=== PATIENT | male | born 1985 | race African-American/Black ===

== ENCOUNTER 2017-03-13 09:15 | Emergency (ER) | payer SELFPAY ==
[2017-03-13] MEDS ORDERED: ONDANSETRON HCL INJ/PF 4 MG/2 ML SDV IV ONE (09:40)
[2017-03-13] MEDS ORDERED: KETOROLAC TROMETHAMINE INJ/PF 30 MG/1 ML SDV IV ONE (09:40)
[2017-03-13] MEDS ORDERED: MORPHINE SULFATE 10 MG/ML INJ IV ONE (09:40)
--- NOTE | 2017-03-13 09:45 | ER Document Report ---
HPI - HPI Patient complains to provider of: left flank pain Onset: Other - 2 days Onset/Duration: Waxing and waning Quality of pain: Sharp Pain Level: 3 Context: Patient presents complaining of left flank pain off and on for the past 2 days. Patient states pain wraps around to the left side of his abdomen. Patient denies any urinary symptoms. Patient does report nausea and vomiting 1 episode today. Last bowel movement was normal that occurred yesterday. Patient without any fever. Patient states that the pain will vary in intensity and sometimes make him nauseous and break out into a sweat. Patient does report a previous history of kidney stones in the past but never followed up with a urologist for further evaluation of his kidney stones. Associated Symptoms: Vomiting, Other - left flank pain. denies: Fever Exacerbated by: Denies Relieved by: Denies Similar symptoms previously: Yes Recently seen / treated by doctor: No - ROS ROS below otherwise negative: Yes Systems Reviewed and Negative: Yes All other systems reviewed and negative - CONSTITUTIONAL Constitutional: DENIES: Fever, Chills - NEURO Neurology: DENIES: Weakness - RESPIRATORY Respiratory: DENIES: Trouble Breathing - GASTROINTESTINAL Gastrointestinal: REPORTS: Abdominal Pain, Nausea, Patient vomiting. DENIES: Diarrhea - URINARY Urinary: DENIES: Dysuria, Urgency, Frequency - MUSCULOSKELETAL Musculoskeletal: REPORTS: Back Pain. DENIES: Extremity pain - DERM Skin Color: Normal Skin Problems: None Past Medical History - General Information source: Patient - Social History Smoking Status: Current Every Day Smoker Frequency of alcohol use: None Drug Abuse: None Occupation: delivery Lives with: Family Family History: Reviewed & Not Pertinent - Medical History Medical History: Negative Renal/ Medical History: Denies: Hx Peritoneal Dialysis Surgical Hx: Negative Vertical Provider Document - CONSTITUTIONAL Agree With Documented VS: Yes Exam Limitations: No Limitations General Appearance: WD/WN, No Apparent Distress - INFECTION CONTROL TRAVEL OUTSIDE OF THE [place] IN LAST 30 DAYS: No - HEENT HEENT: Atraumatic, Normocephalic - NECK Neck: Normal Inspection - RESPIRATORY Respiratory: Breath Sounds Normal, No Respiratory Distress O2 Sat by Pulse Oximetry: 99 - CARDIOVASCULAR Cardiovascular: Regular Rate, Regular Rhythm, No Murmur - GI/ABDOMEN Gastrointestinal: Abdomen Soft, Abdomen Tender - left side abd - BACK Back: CVA Tenderness-Left - MUSCULOSKELETAL/EXTREMETIES Musculoskeletal/Extremeties: ANOOP DICK - NEURO Level of Consciousness: Awake, Alert, Appropriate Motor/Sensory: No Motor Deficit - DERM Integumentary: Warm, Dry, No Rash Course - Re-evaluation Re-evalutation: 03/13/17 11:02 labs now sent by RN 03/13/17 13:[address] Middleton regarding patient presentation, recommends treating patient with Ceftin ear and having him have his creatinine rechecked in about 3 days. Recommend follow-up with urology for further evaluation. 03/13/17 13:54 With [facility] and made an appointment for the patient on March 23 at 845. Discussed plan of care with patient, patient advised that he will need to return in 3 days for repeat blood test and reevaluation with plan to follow- up with urology on 23 March. Patient and family verbalized understanding and agree with plan of care. Discussed worsening signs or symptoms that patient will need to return immediately for. - Vital Signs Vital signs: Temp Pulse Resp BP Pulse Ox 97.9 F 66 14 124/78 99 03/13/17 09:19 03/13/17 09:19 03/13/17 09:19 03/13/17 09:19 03/13/17 09:19 - Laboratory Result Diagrams: 03/13/17 10:50 03/13/17 10:50 Laboratory results interpreted by me: 03/13/17 13:55 Labs- Last Values WBC 5.5 10^3/uL (4.0-10.5) 03/13/17 10:50 RBC 5.14 10^6/uL (4.35-5.55) 03/13/17 10:50 Hgb 14.8 g/dL (13.5-17.0) 03/13/17 10:50 Hct 44.2 % (37.9-51.0) 03/13/17 10:50 MCV 86 fl (80-97) 03/13/17 10:50 MCH 28.9 pg (27.0-33.4) 03/13/17 10:50 MCHC 33.6 g/dL (32.0-36.0) 03/13/17 10:50 RDW 13.2 % (11.5-14.0) 03/13/17 10:50 Plt Count 231 10^3/uL (150-450) 03/13/17 10:50 Seg Neutrophils % 63.9 % (42-78) 03/13/17 10:50 Lymphocytes % 24.5 % (13-45) 03/13/17 10:50 Monocytes % 9.4 % (3-13) 03/13/17 10:50 Eosinophils % 2.0 % (0-6) 03/13/17 10:50 Basophils % 0.2 % (0-2) 03/13/17 10:50 Absolute Neutrophils 3.5 10^3/uL (1.7-8.2) 03/13/17 10:50 Absolute Lymphocytes 1.3 10^3/uL (0.5-4.7) 03/13/17 10:50 Absolute Monocytes 0.5 10^3/uL (0.1-1.4) 03/13/17 10:50 Absolute Eosinophils 0.1 10^3/uL (0.0-0.6) 03/13/17 10:50 Absolute Basophils 0.0 10^3/uL (0.0-0.2) 03/13/17 10:50 Sodium 142.2 mmol/L (137-145) 03/13/17 10:50 Potassium 4.3 mmol/L (3.6-5.0) 03/13/17 10:50 Chloride 105 mmol/L (98-107) 03/13/17 10:50 Carbon Dioxide 26 mmol/L (22-30) 03/13/17 10:50 Anion Gap 11 (5-19) 03/13/17 10:50 BUN 17 mg/dL (7-20) 03/13/17 10:50 Creatinine 1.53 mg/dL (0.52-1.25) H 03/13/17 10:50 Est GFR ( Amer) > 60 (>60) 03/13/17 10:50 Est GFR (Non-Af Amer) 53 (>60) L 03/13/17 10:50 Glucose 90 mg/dL (75-110) 03/13/17 10:50 Calcium 10.1 mg/dL (8.4-10.2) 03/13/17 10:50 Total Bilirubin 0.5 mg/dL (0.2-1.3) 03/13/17 10:50 Direct Bilirubin 0.3 mg/dL (0.0-0.4) 03/13/17 10:50 Indirect Bilirubin Not Reportable 03/13/17 10:50 Neonat Total Bilirubin Not Reportable 03/13/17 10:50 AST 34 U/L (17-59) 03/13/17 10:50 ALT 34 U/L (21-72) 03/13/17 10:50 Alkaline Phosphatase 63 U/L (38-126) 03/13/17 10:50 Total Protein 7.8 g/dL (6.3-8.2) 03/13/17 10:50 Albumin 4.6 g/dL (3.5-5.0) 03/13/17 10:50 Urine Color YELLOW 03/13/17 10:46 Urine Appearance SLIGHTLY-CLOUDY 03/13/17 10:46 Urine pH 5.0 (5.0-9.0) 03/13/17 10:46 Ur Specific [place] 1.036 03/13/17 10:46 Urine Protein 30 mg/dL (NEGATIVE) H 03/13/17 10:46 Urine Glucose (UA) NEGATIVE mg/dL (NEGATIVE) 03/13/17 10:46 Urine Ketones NEGATIVE mg/dL (NEGATIVE) 03/13/17 10:46 Urine Blood NEGATIVE (NEGATIVE) 03/13/17 10:46 Urine Nitrite NEGATIVE (NEGATIVE) 03/13/17 10:46 Urine Bilirubin NEGATIVE (NEGATIVE) 03/13/17 10:46 Urine Urobilinogen NEGATIVE mg/dL (<2.0) 03/13/17 10:46 Ur Leukocyte Esterase SMALL (NEGATIVE) H 03/13/17 10:46 Urine WBC (Auto) 14 /HPF 03/13/17 10:46 Urine RBC (Auto) 6 /HPF 03/13/17 10:46 Urine Bacteria (Auto) TRACE /HPF 03/13/17 10:46 Squamous Epi Cells Auto <1 /HPF 03/13/17 10:46 Calcium Oxalate Cr Auto RARE /HPF 03/13/17 10:46 Urine Mucus (Auto) MANY /LPF 03/13/17 10:46 Urine Ascorbic Acid 40 (NEGATIVE) H 03/13/17 10:46 Labs from patient's previous ER visit 2 years ago - Diagnostic Test Radiology reviewed: Reports reviewed Discharge - Discharge Clinical Impression: Ureteral stone with hydronephrosis, Left flank pain, Abnormal renal function Condition: Stable Disposition: HOME, SELF-CARE Instructions: Toradol Injection ([facility]), Oral Narcotic Medication ([facility]), Kidney Function Abnormality ([facility]), Kidney Stone ([facility]), Flomax ([facility]) Additional Instructions: Return immediately for any new or worsening symptoms fever, increased pain, change in urination, or any concerning symptoms Followup with the urologist at [facility] on March 23 at 8:45 Return to the ER in 3 days have your renal function test rechecked Prescriptions: Cefdinir 300 mg PO BID #20 capsule Oxycodone HCl/Acetaminophen [Percocet 5-325 mg Tablet] 1 tab PO ASDIR PRN #15 tablet PRN Reason: Tamsulosin HCl [Flomax 0.4 mg Cap.sr] 0.4 mg PO DAILY #7 cap.sr.24h Forms: Return to Work Referrals: [facility] [Provider Group] - 03/23/17
[2017-03-13 11:22] LABS: ABSOLUTE EOSINOPHILS # (AUTO) 0.1 10^3/uL (0.0-0.6); ABSOLUTE LYMPHOCYTES (AUTO) 1.3 10^3/uL (0.5-4.7); ABSOLUTE MONOCYTES (AUTO) 0.5 10^3/uL (0.1-1.4); ABSOLUTE NEUT (AUTO) 3.5 10^3/uL (1.7-8.2); BASOPHILS % (AUTO) 0.2 % (0-2); HEMATOCRIT 44.2 % (37.9-51.0); HEMOGLOBIN 14.8 g/dL (13.5-17.0); HGB HCT DIFFERENCE 0.2; LYMPHOCYTES % (AUTO) 24.5 % (13-45); MEAN CORPUSCULAR HEMOGLOBIN 28.9 pg (27.0-33.4); MEAN CORPUSCULAR HGB CONC 33.6 g/dL (32.0-36.0); MEAN CORPUSCULAR VOLUME 86 fl (80-97); MONOCYTES % (AUTO) 9.4 % (3-13); RED BLOOD COUNT 5.14 10^6/uL (4.35-5.55); RED CELL DISTRIBUTION WIDTH 13.2 % (11.5-14.0); SEGMENTED NEUTROPHILS % (AUTO) 63.9 % (42-78); WHITE BLOOD COUNT 5.5 10^3/uL (4.0-10.5)
[2017-03-13 11:43] LABS: ALANINE AMINOTRANSFERASE 34 U/L (21-72); ALBUMIN 4.6 g/dL (3.5-5.0); ALKALINE PHOSPHATASE 63 U/L (38-126); ANION GAP 11 (5-19); ASPARTATE AMINO TRANSFERASE 34 U/L (17-59); BILIRUBIN,DIRECT 0.3 mg/dL (0.0-0.4); BILIRUBIN,TOTAL 0.5 mg/dL (0.2-1.3); BLOOD UREA NITROGEN 17 mg/dL (7-20); CALCIUM 10.1 mg/dL (8.4-10.2); CARBON DIOXIDE 26 mmol/L (22-30); CHLORIDE 105 mmol/L (98-107); CREATININE RESULT 1.53 mg/dL (0.52-1.25); GLUCOSE 90 mg/dL (75-110); POTASSIUM 4.3 mmol/L (3.6-5.0); SODIUM 142.2 mmol/L (137-145); TOTAL PROTEIN 7.8 g/dL (6.3-8.2)
[2017-03-13 11:48] LABS: APPEARANCE,URINE SLIGHTLY-CLOUDY; BILIRUBIN,URINE NEGATIVE (NEGATIVE); CALCIUM OXALATE CRYSTALS,URINE RARE /HPF; GLUCOSE, URINE NEGATIVE (NEGATIVE); KETONES,URINE NEGATIVE (NEGATIVE); LEUKOCYTE ESTERASE,URINE SMALL (NEGATIVE); NITRITE,URINE NEGATIVE (NEGATIVE); PROTEIN,URINE 30 mg/dL (NEGATIVE); URINE SPECIFIC GRAVITY 1.036; UROBILINOGEN,URINE NEGATIVE mg/dL (<2.0)
[2017-03-13] MEDS ORDERED: NORMAL SALINE 1000 ML 1,000 ML IV ONE (12:01)
--- NOTE | 2017-03-13 13:15 | RADIOLOGY REPORT (SQ) ---
EXAM DESCRIPTION: CT LTD RENAL STONE PROTOCOL ON COMPLETED DATE/TIME: 03/13/2017 12:45 pm REASON FOR STUDY: left flank, left abd pain COMPARISON: 07/01/2015 TECHNIQUE: CT scan of the abdomen and pelvis performed without intravenous or oral contrast. Images reviewed with lung, soft tissue, and bone windows. Reconstructed coronal and sagittal MPR images revi ewed. All images stored on PACS. All CT scanners at this facility use dose modulation, iterative reconstruction, and/or weight based d osing when appropriate to reduce radiation dose to as low as reasonably achievable (ALARA). [facility]: Dose Right [facility]: CareDose [facility]: Dose Right [facility]: Teradose 4D [facility]: Smart Solexant RADIATION DOSE: Up-to-date CT equipment and radiation dose reduction techniques were employed. CTDIv ol: 6.6 mGy. DLP: 364 mGy-cm.mGy. LIMITATIONS: None. FINDINGS: LOWER CHEST: No significant findings. No nodules or infiltrates. NON-CONTRASTED LIVER, SPLEEN, ADRENALS: Evaluation limited by lack of IV contrast. No identified sign ificant masses. PANCREAS: No masses. No peripancreatic inflammatory changes. GALLBLADDER: No identified stones by CT criteria. No inflammatory changes to suggest cholecystitis. RIGHT KIDNEY AND URETER: No suspicious masses. Assessment limited by lack of IV contrast. No signif icant calcifications. No hydronephrosis or hydroureter. LEFT KIDNEY AND URETER: A 5.9 mm stone is seen of the mid left ureter with moderate severe hydron ephrosis the left kidney. AORTA AND RETROPERITONEUM: No aneurysm. No retroperitoneal masses or adenopathy. BOWEL AND PERITONEAL CAVITY: No obvious masses or inflammatory changes. No free fluid. APPENDIX: Normal. PELVIS, BLADDER, AND ABDOMINAL WALL:No abnormal masses. No free fluid. Bladder normal. BONES: No significant findings. OTHER: No other significant finding. IMPRESSION: 5.9 mm stone mid left ureter with moderate severe hydronephrosis left kidney. TECHNICAL DOCUMENTATION: JOB ID: [id number] Quality ID # [id number]: Final reports with documentation of one or more dose reduction techniques (e.g., Au tomated exposure control, adjustment of the mA and/or kV according to patient size, use of iterative reconstruction technique) 2010 [employer]- All Rights Reserved
[2017-03-13] MEDS ORDERED: CEFTRIAXONE RTU 1 GM/D5W 50 ML IV ONE (13:35)
[2017-03-13] MEDS ORDERED: TAMSULOSIN HCL 0.4 MG CAP.SR.24H PO ONE (13:59)
[2017-03-13 15:30] VITALS: BP 110/53
== END 2017-03-13 15:10 | disposition home or self-care (01) ==
LOC: ER 09:15
DX: N13.2 Hydronephrosis with renal and ureteral calculous obstruction (principal); R10.9 Unspecified abdominal pain; R94.4 Abnormal results of kidney function studies; R11.2 Nausea with vomiting, unspecified; F17.200 Nicotine dependence, unspecified, uncomplicated
CPT/HCPCS: 99284; 96361; 96375; 96365; 36415; 85025; 80053; 81001; 76380; J1885; J2405; J7030; J0696

== ENCOUNTER 2017-03-16 11:44 | Emergency (ER) | payer SELFPAY ==
--- NOTE | 2017-03-16 12:10 | ER Document Report ---
HPI - HPI Patient complains to provider of: recheck Onset: Other - 2 days ago Onset/Duration: Persistent Quality of pain: Achy Pain Level: 2 Context: Pt was evaluated here 2 days ago for left ureteral stone. Patient had an abnormal renal function test at his visit 2 days ago. Patient is here to have his blood work rechecked. Patient does have an appointment with the urologist on March 23 at 845. Patient denies any nausea, vomiting, or fever. Patient does complain of some mild left flank pain. Associated Symptoms: Other - Flank pain. denies: Fever Exacerbated by: Denies Relieved by: Denies Similar symptoms previously: Yes Recently seen / treated by doctor: Yes - ROS ROS below otherwise negative: Yes Systems Reviewed and Negative: Yes All other systems reviewed and negative - CONSTITUTIONAL Constitutional: DENIES: Fever, Chills - NEURO Neurology: DENIES: Weakness - GASTROINTESTINAL Gastrointestinal: DENIES: Nausea, Patient vomiting - URINARY Urinary: DENIES: Dysuria, Urgency, Frequency - MUSCULOSKELETAL Musculoskeletal: REPORTS: Back Pain - DERM Skin Color: Normal Skin Problems: None Past Medical History - General Information source: Patient - Social History Smoking Status: Current Every Day Smoker Frequency of alcohol use: None Drug Abuse: None Occupation: Moving and storage Lives with: Spouse/Significant other Family History: Reviewed & Not Pertinent - Medical History Medical History: Negative Renal/ Medical History: Denies: Hx Peritoneal Dialysis Surgical Hx: Negative Vertical Provider Document - CONSTITUTIONAL Agree With Documented VS: Yes Exam Limitations: No Limitations General Appearance: WD/WN, No Apparent Distress - INFECTION CONTROL TRAVEL OUTSIDE OF THE [place] IN LAST 30 DAYS: No - HEENT HEENT: Atraumatic, Normocephalic - NECK Neck: Normal Inspection, Supple - RESPIRATORY Respiratory: Breath Sounds Normal, No Respiratory Distress, Chest Non-Tender O2 Sat by Pulse Oximetry: 99 - CARDIOVASCULAR Cardiovascular: Regular Rate, Regular Rhythm, No Murmur - GI/ABDOMEN Gastrointestinal: Abdomen Soft, Abdomen Non-Tender - BACK Back: CVA Tenderness-Left - MUSCULOSKELETAL/EXTREMETIES Musculoskeletal/Extremeties: ANOOP DICK - NEURO Level of Consciousness: Awake, Alert, Appropriate Motor/Sensory: No Motor Deficit - DERM Integumentary: Warm, Dry, No Rash Course - Vital Signs Vital signs: Temp Pulse Resp BP Pulse Ox 97.9 F 63 16 134/85 H 99 03/16/17 11:50 03/16/17 11:50 03/16/17 11:50 03/16/17 11:50 03/16/17 11:50 - Laboratory Result Diagrams: 03/16/17 12:28 03/16/17 12:28 Laboratory results interpreted by me: 03/16/17 13:14 Labs- Entire Visit 03/16/17 03/16/17 03/16/17 12:28 12:28 12:38 WBC 3.4 L RBC 4.72 Hgb 13.6 Hct 41.3 MCV 88 MCH 28.9 MCHC 33.1 RDW 13.3 Plt Count 220 Seg Neutrophils % 43.7 Lymphocytes % 44.5 Monocytes % 7.7 Eosinophils % 3.6 Basophils % 0.5 Absolute Neutrophils 1.5 L Absolute Lymphocytes 1.5 Absolute Monocytes 0.3 Absolute Eosinophils 0.1 Absolute Basophils 0.0 Sodium 140.1 Potassium 4.6 Chloride 104 Carbon Dioxide 28 Anion Gap 8 BUN 7 Creatinine 0.89 Est GFR ( Amer) > 60 Est GFR (Non-Af Amer) > 60 Glucose 99 Calcium 10.0 Urine Color YELLOW Urine Appearance CLEAR Urine pH 6.0 Ur Specific [place] 1.012 Urine Protein NEGATIVE Urine Glucose (UA) NEGATIVE Urine Ketones NEGATIVE Urine Blood NEGATIVE Urine Nitrite NEGATIVE Urine Bilirubin NEGATIVE Urine Urobilinogen NEGATIVE Ur Leukocyte Esterase NEGATIVE Urine WBC (Auto) 5 Urine RBC (Auto) 1 Urine Mucus (Auto) RARE Urine Ascorbic Acid NEGATIVE reviewed Labs from patient's prior ER visit Discharge - Discharge Clinical Impression: hx ureteral stone Condition: Stable Disposition: HOME, SELF-CARE Instructions: Kidney Stone ([facility]) Additional Instructions: Return immediately for any new or worsening symptoms Followup with your primary care provider, call tomorrow to make a followup appointment Follow-up with urologist on March 23 as planned. Return immediately for any new or worsening symptoms Increase diet with foods rich in potassium Forms: Return to Work [facility] [Provider Group] - Follow up as needed
[2017-03-16 12:42] LABS: ABSOLUTE EOSINOPHILS # (AUTO) 0.1 10^3/uL (0.0-0.6); ABSOLUTE LYMPHOCYTES (AUTO) 1.5 10^3/uL (0.5-4.7); ABSOLUTE MONOCYTES (AUTO) 0.3 10^3/uL (0.1-1.4); ABSOLUTE NEUT (AUTO) 1.5 10^3/uL (1.7-8.2); BASOPHILS % (AUTO) 0.5 % (0-2); EOSINOPHILS % (AUTO) 3.6 % (0-6); HEMATOCRIT 41.3 % (37.9-51.0); HEMOGLOBIN 13.6 g/dL (13.5-17.0); HGB HCT DIFFERENCE -0.5; LYMPHOCYTES % (AUTO) 44.5 % (13-45); MEAN CORPUSCULAR HEMOGLOBIN 28.9 pg (27.0-33.4); MEAN CORPUSCULAR HGB CONC 33.1 g/dL (32.0-36.0); MEAN CORPUSCULAR VOLUME 88 fl (80-97); MONOCYTES % (AUTO) 7.7 % (3-13); RED BLOOD COUNT 4.72 10^6/uL (4.35-5.55); RED CELL DISTRIBUTION WIDTH 13.3 % (11.5-14.0); SEGMENTED NEUTROPHILS % (AUTO) 43.7 % (42-78); WHITE BLOOD COUNT 3.4 10^3/uL (4.0-10.5)
[2017-03-16 13:09] LABS: ANION GAP 8 (5-19); BLOOD UREA NITROGEN 7 mg/dL (7-20); CARBON DIOXIDE 28 mmol/L (22-30); CHLORIDE 104 mmol/L (98-107); CREATININE RESULT 0.89 mg/dL (0.52-1.25); GLUCOSE 99 mg/dL (75-110); POTASSIUM 4.6 mmol/L (3.6-5.0); SODIUM 140.1 mmol/L (137-145)
[2017-03-16 13:10] LABS: APPEARANCE,URINE CLEAR; BILIRUBIN,URINE NEGATIVE (NEGATIVE); GLUCOSE, URINE NEGATIVE (NEGATIVE); KETONES,URINE NEGATIVE (NEGATIVE); LEUKOCYTE ESTERASE,URINE NEGATIVE (NEGATIVE); NITRITE,URINE NEGATIVE (NEGATIVE); PROTEIN,URINE NEGATIVE (NEGATIVE); URINE SPECIFIC GRAVITY 1.012; UROBILINOGEN,URINE NEGATIVE mg/dL (<2.0)
[2017-03-16] MEDS ORDERED: POTASSIUM CHLORIDE 10 MEQ TABLET.SA PO ONE (13:14)
[2017-03-16 14:25] VITALS: BP 125/73
== END 2017-03-16 14:24 | disposition home or self-care (01) ==
LOC: ER 11:44
DX: R10.9 Unspecified abdominal pain (principal); F17.200 Nicotine dependence, unspecified, uncomplicated
CPT/HCPCS: 36415; 80048; 81001; 85025; 99284

== ENCOUNTER 2017-06-05 15:20 | Emergency (ER) | payer SELFPAY ==
[2017-06-05] MEDS ORDERED: ONDANSETRON 4 MG TAB.RAPDIS PO ONE (17:11)
[2017-06-05] MEDS ORDERED: KETOROLAC TROMETHAMINE 60 MG/2 ML SDV IM ONE (17:11)
--- NOTE | 2017-06-05 18:04 | RADIOLOGY REPORT (SQ) ---
EXAM DESCRIPTION: CT ABD/PELVIS NO ORAL OR IV COMPLETED DATE/TIME: 06/05/2017 5:46 pm REASON FOR STUDY: left flank pain COMPARISON: 03/13/2017 TECHNIQUE: CT scan of the abdomen and pelvis performed without intravenous or oral contrast. Images reviewed with lung, soft tissue, and bone windows. Reconstructed coronal and sagittal MPR images revi ewed. All images stored on PACS. All CT scanners at this facility use dose modulation, iterative reconstruction, and/or weight based d osing when appropriate to reduce radiation dose to as low as reasonably achievable (ALARA). [facility]: Dose Right [facility]: CareDose [facility]: Dose Right [facility]: Teradose 4D [facility]: Ventrix RADIATION DOSE: 8.4mGy. LIMITATIONS: None. FINDINGS: LOWER CHEST: No significant findings. No nodules or infiltrates. NON-CONTRASTED LIVER, SPLEEN, ADRENALS: Evaluation limited by lack of IV contrast. No identified sign ificant masses. PANCREAS: No masses. No peripancreatic inflammatory changes. GALLBLADDER: No identified stones by CT criteria. No inflammatory changes to suggest cholecystitis. RIGHT KIDNEY AND URETER: No suspicious masses. Assessment limited by lack of IV contrast. No signif icant calcifications. No hydronephrosis or hydroureter. LEFT KIDNEY AND URETER: No suspicious masses. Assessment limited by lack of IV contrast. There is 6 mm stone in left ureter just below the pelvic brim. There is moderate left hydronephrosis and hydr oureter. AORTA AND RETROPERITONEUM: No aneurysm. No retroperitoneal masses or adenopathy. BOWEL AND PERITONEAL CAVITY: No obvious masses or inflammatory changes. No free fluid. APPENDIX: Normal. PELVIS, BLADDER, AND ABDOMINAL WALL:No abnormal masses. No free fluid. Bladder normal. BONES: No significant findings. OTHER: No other significant finding. IMPRESSION: Left ureteral calculus as described. COMMENT: Quality ID # [id number]: Final reports with documentation of one or more dose reduction techniques (e.g., Automated exposure control, adjustment of the mA and/or kV according to patient size, use of iterative reconstruction technique) TECHNICAL DOCUMENTATION: JOB ID: [id number] [employer]- All Rights Reserved
[2017-06-05 18:11] LABS: APPEARANCE,URINE SLIGHTLY-CLOUDY; BILIRUBIN,URINE NEGATIVE (NEGATIVE); GLUCOSE, URINE NEGATIVE (NEGATIVE); KETONES,URINE NEGATIVE (NEGATIVE); LEUKOCYTE ESTERASE,URINE TRACE (NEGATIVE); NITRITE,URINE NEGATIVE (NEGATIVE); PROTEIN,URINE 30 mg/dL (NEGATIVE); URINE SPECIFIC GRAVITY 1.025; UROBILINOGEN,URINE NEGATIVE mg/dL (<2.0)
--- NOTE | 2017-06-05 18:58 | ER Document Report ---
ED General - General Chief Complaint: Possible Kidney Stone Stated Complaint: LOW BACK PAIN Time Seen by Provider: 06/05/17 17:10 Mode of Arrival: Ambulatory Information source: Patient Notes: Patient reports 1 day of severe left flank pain. Is constant and radiates the left lower abdomen. Nothing makes it better or worse. It does make him nauseated but no vomiting or diarrhea. No fevers. It is a sharp pain. No blood in the urine or pain with urination. Patient states it feels like a previous kidney stone. TRAVEL OUTSIDE OF THE [place] IN LAST 30 DAYS: No - Related Data Allergies/Adverse Reactions: Penicillins Allergy (Verified 03/16/17 11:50) Past Medical History - General Information source: Patient - Social History Smoking Status: Current Every Day Smoker Chew tobacco use (# tins/day): No Frequency of alcohol use: None Drug Abuse: None Family History: Reviewed & Not Pertinent Renal/ Medical History: Reports: Hx Kidney Stones. Denies: Hx Peritoneal Dialysis Surgical Hx: Negative Review of Systems - Review of Systems Constitutional: denies: Chills, Fever Cardiovascular: denies: Chest pain, Dyspnea Respiratory: denies: Cough, Short of breath -: Yes All other systems reviewed and negative Physical Exam - Vital signs Vitals: Temp Pulse Resp BP Pulse Ox 99.0 F 61 18 125/69 100 06/05/17 15:49 06/05/17 15:49 06/05/17 15:49 06/05/17 15:49 06/05/17 15:49 Interpretation: Normal - General General appearance: Appears well, Alert - HEENT Head: Normocephalic, Atraumatic Eyes: Normal Pupils: PERRL - Respiratory Respiratory status: No respiratory distress Chest status: Nontender Breath sounds: Normal Chest palpation: Normal - Cardiovascular Rhythm: Regular Heart sounds: Normal auscultation Murmur: No - Abdominal Inspection: Normal Distension: No distension Bowel sounds: Normal Tenderness: Nontender Organomegaly: No organomegaly - Back Back: Normal, Nontender - Extremities General upper extremity: Normal inspection, Nontender, Normal color, Normal ROM , Normal temperature General lower extremity: Normal inspection, Nontender, Normal color, Normal ROM , Normal temperature, Normal weight bearing. No: Ana's sign - Neurological Neuro grossly intact: Yes Cognition: Normal Orientation: AAOx4 [place] Coma Scale Eye Opening: Spontaneous [place] Coma Scale Verbal: Oriented Esther Coma Scale Motor: Obeys Commands Esther Coma Scale Total: 15 Speech: Normal Motor strength normal: LUE, RUE, LLE, RLE Sensory: Normal - Psychological Associated symptoms: Normal affect, Normal mood - Skin Skin Temperature: Warm Skin Moisture: Dry Skin Color: Normal Course - Vital Signs Vital signs: Temp Pulse Resp BP Pulse Ox 99.0 F 61 18 125/69 100 06/05/17 15:49 06/05/17 15:49 06/05/17 15:49 06/05/17 15:49 06/05/17 15:49 - Laboratory Laboratory results interpreted by me: 06/05/17 17:30 Urine Protein 30 H Ur Leukocyte Esterase TRACE H Urine Ascorbic Acid 40 H - Diagnostic Test Radiology reviewed: Image reviewed, Reports reviewed - CAT scan shows a 6 mm calculus in the left ureter Discharge - Discharge Clinical Impression: Left ureteral calculus Condition: Stable Disposition: HOME, SELF-CARE Instructions: Kidney Stone ([facility]) Additional Instructions: Please follow-up with your primary care doctor as soon as possible for reevaluation Prescriptions: Hydrocodone/Acetaminophen [[place] 5-325 mg Tablet] 1 tab PO Q6 PRN #12 tablet PRN Reason: Forms: Return to Work Referrals: DREW PERAZA MD [[facility]] - Follow up as needed
[2017-06-05 19:18] VITALS: BP 135/78
== END 2017-06-05 19:18 | disposition home or self-care (01) ==
LOC: ER 15:20
DX: N20.1 Calculus of ureter (principal); R10.9 Unspecified abdominal pain; M54.5 Low back pain; F17.200 Nicotine dependence, unspecified, uncomplicated; Z87.442 Personal history of urinary calculi; Z88.0 Allergy status to penicillin
CPT/HCPCS: 99284; 96372; 81001; 74176; J1885; S0119

== ENCOUNTER 2017-10-08 14:45 | Emergency (ER) | payer SELFPAY ==
[2017-10-08] MEDS ORDERED: OXYCODONE-ACETAMINOPHEN 5-325 MG TABLET PO ONE (15:44)
[2017-10-08] MEDS ORDERED: ONDANSETRON 4 MG TAB.RAPDIS PO ONE (15:44)
--- NOTE | 2017-10-08 15:48 | ER Document Report ---
ED Medical Screen (RME) - General Chief Complaint: Flank Pain Stated Complaint: BACK PAIN, VOMITING, LEFT FLANK PAIN Time Seen by Provider: 10/08/17 15:36 Mode of Arrival: Ambulatory Information source: Patient Notes: 32 y.o male with a PMHx of kidney stones presents to the ED with sharp LT flank pain that radiates to his LLQ of onset this morning around 0600. In February and May 2017, pt had a 6mm stone and hydronephrosis on the left for which he never followed up and the pain resolved. He reports feeling hot and then having chills since onset this morning. He states several episodes of blood tinged vomiting. He denies any recent illness or any urinary sx. TRAVEL OUTSIDE OF THE [place] IN LAST 30 DAYS: No - Related Data Allergies/Adverse Reactions: Penicillins Allergy (Verified 10/08/17 14:47) Past Medical History - General Information source: Patient - Social History Chew tobacco use (# tins/day): No Frequency of alcohol use: None Drug Abuse: None Endocrine Medical History: Reports: Hx Diabetes Mellitus Type 2 Renal/ Medical History: Reports: Hx Kidney Stones. Denies: Hx Peritoneal Dialysis Review of Systems - Review of Systems Constitutional: See HPI, Chills Gastrointestinal: Vomiting - tinged with blood Genitourinary: No symptoms reported - denies any urinary sx, Flank pain - LT Physical Exam - Vital signs Vitals: Temp Pulse Resp BP Pulse Ox 98.5 F 75 16 138/87 H 98 10/08/17 14:50 10/08/17 14:50 10/08/17 14:50 10/08/17 14:50 10/08/17 14:50 - General General appearance: Appears well, Alert In distress: None - Respiratory Respiratory status: No respiratory distress Chest status: Nontender Breath sounds: Normal Chest palpation: Normal - Cardiovascular Rhythm: Regular Heart sounds: Normal auscultation Murmur: No - Back Back: CVA tenderness - Left - Extremities General upper extremity: Normal inspection, Normal ROM General lower extremity: Normal inspection, Normal ROM - Neurological Neuro grossly intact: Yes Cognition: Normal Orientation: AAOx4 - Psychological Associated symptoms: Normal affect, Normal mood - Skin Skin Temperature: Warm Skin Moisture: Dry Skin Color: Normal Course - Vital Signs Vital signs: Temp Pulse Resp BP Pulse Ox 98.5 F 75 16 138/87 H 98 10/08/17 14:50 10/08/17 14:50 10/08/17 14:50 10/08/17 14:50 10/08/17 14:50
[2017-10-08 16:21] LABS: ABSOLUTE EOSINOPHILS # (AUTO) 0.2 10^3/uL (0.0-0.6); ABSOLUTE MONOCYTES (AUTO) 0.7 10^3/uL (0.1-1.4); ABSOLUTE NEUT (AUTO) 4.9 10^3/uL (1.7-8.2); APPEARANCE,URINE SLIGHTLY-CLOUDY; BASOPHILS % (AUTO) 0.5 % (0-2); BILIRUBIN,URINE NEGATIVE (NEGATIVE); COLOR,URINE YELLOW; GLUCOSE, URINE NEGATIVE (NEGATIVE); HEMOGLOBIN 15.3 g/dL (13.5-17.0); KETONES,URINE NEGATIVE (NEGATIVE); LEUKOCYTE ESTERASE,URINE NEGATIVE (NEGATIVE); MEAN CORPUSCULAR HEMOGLOBIN 28.4 pg (27.0-33.4); MEAN CORPUSCULAR HGB CONC 33.3 g/dL (32.0-36.0); MEAN CORPUSCULAR VOLUME 85 fl (80-97); MONOCYTES % (AUTO) 8.9 % (3-13); NITRITE,URINE NEGATIVE (NEGATIVE); PLATELET COUNT 250 10^3/uL (150-450); PROTEIN,URINE 30 mg/dL (NEGATIVE); RED BLOOD COUNT 5.41 10^6/uL (4.35-5.55); RED CELL DISTRIBUTION WIDTH 13.4 % (11.5-14.0); SEGMENTED NEUTROPHILS % (AUTO) 62.6 % (42-78); TOTAL CELLS COUNTED % (AUTO) 100 %; WHITE BLOOD COUNT 7.8 10^3/uL (4.0-10.5)
[2017-10-08 16:36] LABS: ALANINE AMINOTRANSFERASE 48 U/L (21-72); ALBUMIN 5.1 g/dL (3.5-5.0); ALKALINE PHOSPHATASE 55 U/L (38-126); ANION GAP 17 (5-19); ASPARTATE AMINO TRANSFERASE 47 U/L (17-59); BILIRUBIN,DIRECT 0.4 mg/dL (0.0-0.4); BILIRUBIN,TOTAL 0.7 mg/dL (0.2-1.3); BLOOD UREA NITROGEN 19 mg/dL (7-20); CALCIUM 10.5 mg/dL (8.4-10.2); CARBON DIOXIDE 23 mmol/L (22-30); CHLORIDE 102 mmol/L (98-107); GLUCOSE 105 mg/dL (75-110); LIPASE 71.2 U/L (23-300); POTASSIUM 4.2 mmol/L (3.6-5.0); SODIUM 142.3 mmol/L (137-145); TOTAL PROTEIN 8.3 g/dL (6.3-8.2)
[2017-10-08] MEDS ORDERED: NORMAL SALINE 1000 ML 1,000 ML IV ONE (16:47)
[2017-10-08] MEDS ORDERED: ONDANSETRON HCL INJ/PF 4 MG/2 ML SDV IV ONE (16:47)
[2017-10-08] MEDS ORDERED: KETOROLAC TROMETHAMINE INJ/PF 30 MG/1 ML SDV IV ONE (16:47)
--- NOTE | 2017-10-08 16:49 | ER Document Report ---
ED GI/ - General Chief Complaint: Flank Pain Stated Complaint: BACK PAIN, VOMITING, LEFT FLANK PAIN Time Seen by Provider: 10/08/17 15:36 Mode of Arrival: Ambulatory Information source: Patient Notes: Patient is a 32-year-old male with a history of kidney stones who presents to the ER today for left flank pain 1 day. Patient admits to some nausea and vomiting as well. Patient states he has vomited so much "I vomited blood." Patient states has been streaks of blood in his vomit. Patient denies any fevers or chills that he knows of. He has not seen any blood in his urine. TRAVEL OUTSIDE OF THE [place] IN LAST 30 DAYS: No - Related Data Allergies/Adverse Reactions: Penicillins Allergy (Verified 10/08/17 14:47) Past Medical History - General Information source: Patient - Social History Smoking Status: Current Every Day Smoker Chew tobacco use (# tins/day): No Frequency of alcohol use: None Drug Abuse: None Family History: Reviewed & Not Pertinent Patient has suicidal ideation: No Patient has homicidal ideation: No Endocrine Medical History: Reports: Hx Diabetes Mellitus Type 2 Renal/ Medical History: Reports: Hx Kidney Stones. Denies: Hx Peritoneal Dialysis Review of Systems - Review of Systems Constitutional: No symptoms reported EENT: No symptoms reported Cardiovascular: No symptoms reported Respiratory: No symptoms reported Gastrointestinal: No symptoms reported Genitourinary: See HPI Male Genitourinary: No symptoms reported Musculoskeletal: No symptoms reported Skin: No symptoms reported Hematologic/Lymphatic: No symptoms reported Neurological/Psychological: No symptoms reported Physical Exam - Vital signs Vitals: Temp Pulse Resp BP Pulse Ox 98.5 F 75 16 138/87 H 98 10/08/17 14:50 10/08/17 14:50 10/08/17 14:50 10/08/17 14:50 10/08/17 14:50 - Notes Notes: PHYSICAL EXAMINATION: GENERAL: Well-appearing and in no acute distress. HEAD: Atraumatic, normocephalic. EYES: Pupils equal round and reactive to light, extraocular movements intact, sclera anicteric, conjunctiva are normal. NECK: Normal range of motion, supple without lymphadenopathy LUNGS: CTAB and equal. No wheezes rales or rhonchi. HEART: Regular rate and rhythm without murmurs ABDOMEN: Soft, no tenderness. No guarding, no rebound BACK: no vertebral tenderness, normal ROM GI/: left CVA tenderness EXTREMITIES: Normal range of motion, no pitting edema. No cyanosis. NEUROLOGICAL: Cranial nerves grossly intact. Normal sensory/motor exams. PSYCH: Normal mood, normal affect. SKIN: Warm, Dry, normal turgor, no rashes or lesions noted Course - Re-evaluation Re-evalutation: 10/08/17 19:07 Patient has a 6 mm stone in the distal ureter at the level of the UPJ with severe hydronephrosis noted on CAT scan today. Dr. Moreau, urologist on-call was consulted and wants to see him in the office first thing in the morning. Patient has not vomited here in the emergency department. Pain control has been achieved. We will send patient home with strainer. - Vital Signs Vital signs: Temp Pulse Resp BP Pulse Ox 98.5 F 75 16 138/87 H 98 10/08/17 14:50 10/08/17 14:50 10/08/17 14:50 10/08/17 14:50 10/08/17 14:50 - Laboratory Result Diagrams: 10/08/17 15:50 10/08/17 15:50 Laboratory results interpreted by me: 10/08/17 10/08/17 15:50 15:50 Creatinine 1.39 H Calcium 10.5 H Total Protein 8.3 H Albumin 5.1 H Urine Protein 30 H Urine Blood LARGE H Urine Urobilinogen 2.0 H Discharge - Discharge Clinical Impression: Left ureteral stone Condition: Stable Disposition: HOME, SELF-CARE Additional Instructions: Return immediately for any new or worsening symptoms. Follow up with primary care provider, call tomorrow to make followup appointment. Prescriptions: Ondansetron [Zofran Odt 4 mg Tablet] 4 mg PO Q4HP PRN #30 tab.rapdis PRN Reason: Oxycodone HCl/Acetaminophen [Percocet 10-325 Mg Tablet] 1 each PO Q4 PRN #15 tablet PRN Reason: Referrals: STEVEN MOREAU II, MD [BETTINA RICHARDSON] - Follow up as needed
--- NOTE | 2017-10-08 18:00 | RADIOLOGY REPORT (SQ) ---
EXAM DESCRIPTION: U/S RETROPERITON LTD COMPLETED DATE/TIME: 10/08/2017 5:37 pm REASON FOR STUDY: left flank pain COMPARISON: None. TECHNIQUE: Dynamic and static grayscale images acquired of the kidneys and bladder and recorded on P ACS. Additional selected color Doppler and spectral images recorded. LIMITATIONS: None. FINDINGS: RIGHT KIDNEY: Normal size. Normal echogenicity. No solid or suspicious masses. No h ydronephrosis. No calcifications. LEFT KIDNEY: Normal size. Normal echogenicity. No solid or suspicious masses. Moderate-severe hydronephrosis. No calcifications. BLADDER: Decompressed. OTHER FINDINGS: No other significant finding. IMPRESSION: Moderate-severe left hydronephrosis. Bladder decompressed. TECHNICAL DOCUMENTATION: JOB ID: [id number] 2010 [employer]- All Rights Reserved Reading location - IP/workstation name: [email or web address]
[2017-10-08] MEDS ORDERED: FENTANYL CITRATE INJ/PF 100 MCG/2 ML AMPUL IV ONE ×2 (18:05→19:16)
--- NOTE | 2017-10-08 18:51 | RADIOLOGY REPORT (SQ) ---
EXAM DESCRIPTION: CT LTD RENAL STONE PROTOCOL ON COMPLETED DATE/TIME: 10/08/2017 6:37 pm REASON FOR STUDY: moderate-severe hydronephrosis, stone size? COMPARISON: 03/13/2017 TECHNIQUE: CT scan of the abdomen and pelvis performed without intravenous or oral contrast. Images reviewed with lung, soft tissue, and bone windows. Reconstructed coronal and sagittal MPR images revi ewed. All images stored on PACS. All CT scanners at this facility use dose modulation, iterative reconstruction, and/or weight based d osing when appropriate to reduce radiation dose to as low as reasonably achievable (ALARA). [facility]: Dose Right [facility]: CareDose [facility]: Dose Right [facility]: Teradose 4D [facility]: [employer] RADIATION DOSE: CT Rad equipment meets quality standard of care and radiation dose reduction techniq ues were employed. CTDIvol: 8.9 mGy. DLP: 489 mGy-cm.mGy. LIMITATIONS: None. FINDINGS: LOWER CHEST: No significant findings. No nodules or infiltrates. NON-CONTRASTED LIVER, SPLEEN, ADRENALS: Evaluation limited by lack of IV contrast. No identified sign ificant masses. PANCREAS: No masses. No peripancreatic inflammatory changes. GALLBLADDER: No identified stones by CT criteria. No inflammatory changes to suggest cholecystitis. RIGHT KIDNEY AND URETER: No suspicious masses. Assessment limited by lack of IV contrast. No signif icant calcifications. No hydronephrosis or hydroureter. LEFT KIDNEY AND URETER: No suspicious masses. Assessment limited by lack of IV contrast. 6 mm calci fied stone in the distal left ureter above the UVJ with severe hydronephrosis - hydroureter. AORTA AND RETROPERITONEUM: No aneurysm. No retroperitoneal masses or adenopathy. BOWEL AND PERITONEAL CAVITY: No obvious masses or inflammatory changes. No free fluid. APPENDIX: Normal. PELVIS, BLADDER, AND ABDOMINAL WALL:No abnormal masses. No free fluid. Bladder normal. BONES: No significant findings. OTHER: No other significant finding. IMPRESSION: 6 mm calcified stone in the distal left ureter above the UVJ with severe hydronephrosis - hydroureter. COMMENT: Quality ID # [id number]: Final reports with documentation of one or more dose reduction techniques (e.g., Automated exposure control, adjustment of the mA and/or kV according to patient size, use of iterative reconstruction technique) TECHNICAL DOCUMENTATION: JOB ID: [id number]-72 2010 [employer]- All Rights Reserved Reading location - IP/workstation name: [email or web address]
[2017-10-08 19:51] VITALS: BP 125/69
== END 2017-10-08 19:57 | disposition home or self-care (01) ==
LOC: ER 14:45
DX: N21.1 Calculus in urethra (principal); R10.9 Unspecified abdominal pain; R11.10 Vomiting, unspecified; E11.9 Type 2 diabetes mellitus without complications; Z88.0 Allergy status to penicillin; Z87.442 Personal history of urinary calculi
CPT/HCPCS: 96376; 99284; 96361; 96374; 96375; 36415; 87086; 83690; 85025; 80053; 76775; 81001; 76380; S0119; J3010; J1885; J2405; J7030

== ENCOUNTER 2017-10-10 11:53 | Emergency (ER) | payer SELFPAY ==
--- NOTE | 2017-10-10 12:43 | ER Document Report ---
ED General - General Chief Complaint: Fainting Stated Complaint: FLANK PAIN Time Seen by Provider: 10/10/17 12:35 Notes: 32 years old male with a history of urinary tract stone, going to have a lithotripsy tomorrow morning, while in the shower she has apparently passed out for a few seconds to a minute. Therefore he was brought to the ED. And he hit his right cheek on the shower and sustained some contusion. He was taking Percocet for pain 10 mg. Currently denies any headache focal weakness numbness tingling sensation. Denies any other constitutional symptoms. TRAVEL OUTSIDE OF THE [place] IN LAST 30 DAYS: No - HPI Onset: Just prior to arrival Onset/Duration: Sudden. denies: Gradual, Constant, Intermittent, Persistent, Waxing and waning, Better, Worse, Gone Quality of pain: Dull. denies: No pain, Achy, Burning, Cramping, Fullness, Pressure, Sharp, Stabbing, Throbbing, Other Severity: Mild Associated symptoms: denies: None, Allergy/hay fever, Body/muscle aches, Chest pain, Chills, Nonproductive cough, Productive cough, Diarrhea, Drooling, Earache , Fever, Headache, Hoarseness, Hurts to breath, Leg swelling, Nausea, Vomiting, Rhinnorhea, Sinus pain/drainage, Shortness of breath, Slow to respond, Sore throat, Sweating, Weakness, Other Exacerbated by: denies: Denies, Supine, Sitting, Standing, Movement, Walking, Coughing, Deep breathing, Food, Other Relieved by: denies: Denies, Supine, Sitting, Standing, Remaining still, Antacids, Food, Other - Related Data Allergies/Adverse Reactions: Penicillins Allergy (Verified 10/10/17 11:54) Past Medical History - General Information source: Patient, Parent - Social History Smoking Status: Current Every Day Smoker Cigarette use (# per day): Yes Chew tobacco use (# tins/day): No Frequency of alcohol use: Occasional Drug Abuse: None Family History: Reviewed & Not Pertinent - Past Medical History Cardiac Medical History: Denies: None, Hx Atrial Fibrillation, Hx Congestive Heart Failure, Hx Coronary Artery Disease, Hx DVT, Hx Heart Attack, Hx Hypercholesterolemia, Hx Hypertension, Hx Peripheral Vascular Disease, Hx Pulmonary Embolism, Hx Heart Murmur, Other Pulmonary Medical History: Denies: None, Hx Asthma, Hx Bronchitis, Hx COPD, Hx Pneumonia, Hx Intubation , Hx Respiratory Failure, Hx Sleep Apnea, Hx Tuberculosis, Other Neurological Medical History: Denies: None, Hx Cerebrovascular Accident, Hx Migraine, Hx Seizures, Other Endocrine Medical History: Reports: Hx Diabetes Mellitus Type 2 Renal/ Medical History: Reports: Hx Kidney Stones. Denies: Hx Peritoneal Dialysis Review of Systems - Review of Systems Constitutional: denies: No symptoms reported, See HPI, Chills, Diaphoresis, Fever, Malaise, Weakness, Other, Weight gain, Weight loss, Recent illness EENT: denies: No symptoms reported, See HPI, Eye pain, Eye discharge, Blurred vision, Tearing, Double vision, Ear pain, Ear discharge, Nose pain, Nose congestion, Nose discharge, Sinus pressure, Sinus discharge, Throat pain, Difficulty swallowing, Throat swelling, Mouth pain, Mouth swelling, Dental problem, Vertigo, Other Cardiovascular: denies: No symptoms reported, See HPI, Chest pain, Palpitations , Heart racing, Orthopnea, Dyspnea, Syncope, Dizziness, Lightheaded, Edema, Other, Paroxysmal Nocturnal Dysp Respiratory: denies: No symptoms reported, See HPI, Cough, Hurts to breathe, Hemoptysis, Short of breath, Sputum, Stridor, Wheezing, Other Gastrointestinal: denies: No symptoms reported, See HPI, Abdomen distended, Abdominal pain, Diarrhea, Nausea, Vomiting, Constipation, Blood streaked bowels , Poor appetite, Poor fluid intake, Blood in vomit, Black stools, Rectal bleeding, Last bowel movement, Fecal incontinence, Other Musculoskeletal: denies: No symptoms reported, See HPI, Back pain, Gout, Joint pain, Joint swelling, Muscle pain, Muscle stiffness, Neck pain, Deformity, Leg swelling, Ankle swelling, Other Hematologic/Lymphatic: denies: No symptoms reported, See HPI, Anemia, Blood clots, Easy bleeding, Easy bruising, Enlarged lymph nodes, Swollen glands, Other Physical Exam - Vital signs Vitals: Temp Pulse Resp BP Pulse Ox 98.4 F 55 L 16 115/68 98 10/10/17 12:00 10/10/17 12:00 10/10/17 12:00 10/10/17 12:10/10/17 12:00 - Notes Notes: PHYSICAL EXAMINATION: GENERAL: Well-appearing, well-nourished and in no acute distress. Appears to be comfortable HEAD: Atraumatic, normocephalic. Right cheek at the lower orbital region slight swelling and tenderness noted. Pupils were equal and extraocular muscles within normal range. EYES: Pupils equal round and reactive to light, extraocular movements intact, sclera anicteric, conjunctiva are normal. ENT: Nares patent, oropharynx clear without exudates. Moist mucous membranes. NECK: Normal range of motion, supple without lymphadenopathy LUNGS: Breath sounds clear to auscultation bilaterally and equal. No wheezes rales or rhonchi. HEART: Regular rate and rhythm without murmurs ABDOMEN: Soft, nontender, nondistended abdomen. No guarding, no rebound. No masses appreciated. Musculoskeletal: Normal range of motion, no pitting or edema. No cyanosis. NEUROLOGICAL: Cranial nerves grossly intact. Normal speech, normal gait. Normal sensory, motor exams . No focal neurological deficit noted PSYCH: Normal mood, normal affect. SKIN: Warm, Dry, normal turgor, no rashes or lesions noted. Course - Vital Signs Vital signs: Temp Pulse Resp BP Pulse Ox 98.4 F 55 L 16 115/68 98 10/10/17 12:00 10/10/17 12:00 10/10/17 12:00 10/10/17 12:00 10/10/17 12:00 - Laboratory Result Diagrams: 10/10/17 14:05 10/10/17 14:05 Laboratory results interpreted by me: 10/10/17 10/10/17 13:41 14:05 Glucose 114 H Urine Blood SMALL H Urine Urobilinogen 2.0 H - Diagnostic Test Radiology reviewed: Reports reviewed Radiology results interpreted by me: 10/10/17 15:58 CT of the head was reported by radiologist as negative - EKG Interpretation by Ga EKG shows normal: Sinus rhythm Rate: Normal - Normal sinus rhythm at a rate of 56 bpm normal axis no acute ST elevation ST depression T-wave inversion noted. Discharge - Discharge Clinical Impression: Vasovagal syncope Contusion of face Qualifiers: Encounter type: initial encounter Qualified Code(s): S00.83XA - Contusion of other part of head, initial encounter Headache Qualifiers: Headache type: unspecified Headache chronicity pattern: acute headache Condition: Fair Disposition: HOME, SELF-CARE Instructions: Syncopal Episode ([facility]), Headache ([facility])
--- NOTE | 2017-10-10 13:22 | RADIOLOGY REPORT (SQ) ---
EXAM DESCRIPTION: CT HEAD WITHOUT COMPLETED DATE/TIME: 10/10/2017 1:07 pm REASON FOR STUDY: Syncope COMPARISON: None. TECHNIQUE: Axial images acquired through the brain without intravenous contrast. Images reviewed wi th bone, brain and subdural windows. Images stored on PACS. All CT scanners at this facility use dose modulation, iterative reconstruction, and/or weight based d osing when appropriate to reduce radiation dose to as low as reasonably achievable (ALARA). [facility]: Dose Right [facility]: CareDose [facility]: Dose Right [facility]: Teradose 4D [facility]: [employer] RADIATION DOSE: CT Rad equipment meets quality standard of care and radiation dose reduction techniq ues were employed. CTDIvol: 64.6 mGy. DLP: 1292 mGy-cm. mGy. LIMITATIONS: None. FINDINGS: VENTRICLES: Normal size and contour. CEREBRUM: No masses. No hemorrhage. No midline shift. No evidence for acute infarction. Normal gra y/white matter differentiation. No areas of low density in the white matter. CEREBELLUM: No masses. No hemorrhage. No alteration of density. No evidence for acute infarction. EXTRAAXIAL SPACES: No fluid collections. No masses. ORBITS AND GLOBE: No intra- or extraconal masses. Normal contour of globe without masses. CALVARIUM: No fracture. PARANASAL SINUSES: No fluid or mucosal thickening. SOFT TISSUES: No mass or hematoma. OTHER: No other significant finding. IMPRESSION: NORMAL BRAIN CT WITHOUT CONTRAST. EVIDENCE OF ACUTE STROKE: NO. COMMENT: Quality ID # [id number]: Final reports with documentation of one or more dose reduction techniques (e.g., Automated exposure control, adjustment of the mA and/or kV according to patient size, use of iterative reconstruction technique) TECHNICAL DOCUMENTATION: JOB ID: [id number] [employer]- All Rights Reserved Reading location - IP/workstation name: [email or web address]
[2017-10-10 14:02] LABS: APPEARANCE,URINE CLEAR; BILIRUBIN,URINE NEGATIVE (NEGATIVE); COLOR,URINE YELLOW; GLUCOSE, URINE NEGATIVE (NEGATIVE); KETONES,URINE NEGATIVE (NEGATIVE); LEUKOCYTE ESTERASE,URINE NEGATIVE (NEGATIVE); NITRITE,URINE NEGATIVE (NEGATIVE); PROTEIN,URINE NEGATIVE (NEGATIVE); URINE SPECIFIC GRAVITY 1.016
[2017-10-10 14:15] LABS: ABSOLUTE EOSINOPHILS # (AUTO) 0.1 10^3/uL (0.0-0.6); ABSOLUTE LYMPHOCYTES (AUTO) 1.5 10^3/uL (0.5-4.7); ABSOLUTE MONOCYTES (AUTO) 0.4 10^3/uL (0.1-1.4); ABSOLUTE NEUT (AUTO) 2.5 10^3/uL (1.7-8.2); BASOPHILS % (AUTO) 0.7 % (0-2); EOSINOPHILS % (AUTO) 2.4 % (0-6); HEMATOCRIT 42.1 % (37.9-51.0); HEMOGLOBIN 14.1 g/dL (13.5-17.0); LYMPHOCYTES % (AUTO) 32.4 % (13-45); MEAN CORPUSCULAR HEMOGLOBIN 28.6 pg (27.0-33.4); MEAN CORPUSCULAR HGB CONC 33.5 g/dL (32.0-36.0); MEAN CORPUSCULAR VOLUME 85 fl (80-97); PLATELET COUNT 218 10^3/uL (150-450); RED BLOOD COUNT 4.93 10^6/uL (4.35-5.55); RED CELL DISTRIBUTION WIDTH 13.3 % (11.5-14.0); SEGMENTED NEUTROPHILS % (AUTO) 55.5 % (42-78); TOTAL CELLS COUNTED % (AUTO) 100 %; WHITE BLOOD COUNT 4.5 10^3/uL (4.0-10.5)
[2017-10-10 14:28] LABS: ALANINE AMINOTRANSFERASE 32 U/L (21-72); ALBUMIN 4.3 g/dL (3.5-5.0); ALKALINE PHOSPHATASE 43 U/L (38-126); ANION GAP 8 (5-19); ASPARTATE AMINO TRANSFERASE 27 U/L (17-59); BILIRUBIN,DIRECT 0.3 mg/dL (0.0-0.4); BILIRUBIN,TOTAL 0.6 mg/dL (0.2-1.3); BLOOD UREA NITROGEN 12 mg/dL (7-20); CALCIUM 10.1 mg/dL (8.4-10.2); CARBON DIOXIDE 28 mmol/L (22-30); CHLORIDE 103 mmol/L (98-107); GLUCOSE 114 mg/dL (75-110); POTASSIUM 4.1 mmol/L (3.6-5.0); SODIUM 139.3 mmol/L (137-145); TOTAL PROTEIN 7.1 g/dL (6.3-8.2)
[2017-10-10] MEDS ORDERED: NORMAL SALINE 1000 ML 1,000 ML IV PRN (15:19)
[2017-10-10] MEDS ORDERED: OXYCODONE-ACETAMINOPHEN 5-325 MG TABLET PO ONE (15:19)
[2017-10-10 17:34] VITALS: BP 127/80
--- NOTE | 2017-10-10 20:46 | EKG REPORT ---
SEVERITY:- BORDERLINE ECG - SINUS RHYTHM BORDERLINE LEFT AXIS DEVIATION NONSPECIFIC ST-T CHANGES- INFERIOR LEADS : Confirmed by: Harry Gil MD 10-Oct-2017 20:45:41
== END 2017-10-10 17:34 | disposition home or self-care (01) ==
LOC: ER 11:53
DX: R55 Syncope and collapse (principal); S00.83XA Contusion of other part of head, initial encounter; R10.9 Unspecified abdominal pain; W22.8XXA Striking against or struck by other objects, initial encounter; F17.210 Nicotine dependence, cigarettes, uncomplicated
CPT/HCPCS: 93005; 99284; 96360; 96361; 36415; 85025; 80053; 81001; 70450; 93010; J7030

== ENCOUNTER 2017-10-11 09:31 | Day surgery (SDC) | payer SELFPAY ==
[~2017-10-11 09:31] MED LIST: LIDOCAINE 2% URO-JET 5 ML KIT ONE
[2017-10-11] MEDS ORDERED: GENTAMICIN SULFATE 80 MG in DEXTROSE 5%-WATER 100 ML IV PRN (09:56)
[2017-10-11] MEDS ORDERED: GENTAMICIN SULFATE 80 MG in NORMAL SALINE 100 ML IV PRN (10:10)
[2017-10-11] MEDS ORDERED: PROPOFOL INJ 200 MG/20 ML VIAL IV ONE (11:13)
[2017-10-11] MEDS ORDERED: MIDAZOLAM 2 MG/2 ML INJ ONE (11:13)
[2017-10-11] MEDS ORDERED: ACETAMINOPHEN 100 ML IV ONE (11:14)
[2017-10-11] MEDS ORDERED: FENTANYL CITRATE INJ/PF 100 MCG/2 ML AMPUL ONE (11:14)
[2017-10-11] MEDS ORDERED: DIPHENHYDRAMINE HCL 50 MG/ML VIAL IV PRN (12:51)
[2017-10-11] MEDS ORDERED: MEPERIDINE HCL/PF INJ 25 MG/1 ML DISP.SYRIN IV PRN (12:51)
[2017-10-11] MEDS ORDERED: OXYCODONE-ACETAMINOPHEN 5-325 MG TABLET PO PRN ×2 (12:51)
[2017-10-11] MEDS ORDERED: FENTANYL CITRATE INJ/PF 100 MCG/2 ML AMPUL IV PRN ×3 (12:51)
[2017-10-11] MEDS ORDERED: PROMETHAZINE HCL INJ 25 MG/1 ML VIAL IV PRN ×2 (12:51)
[2017-10-11] MEDS ORDERED: MORPHINE SULFATE 10 MG/ML INJ IV PRN (12:51)
[2017-10-11] MEDS ORDERED: MEPERIDINE HCL/PF INJ 25 MG/1 ML DISP.SYRIN ONE (13:22)
[2017-10-11] MEDS ORDERED: NORMAL SALINE 1000 ML 1,000 ML IV PRN (13:39)
[2017-10-11] MEDS ORDERED: ONDANSETRON HCL INJ/PF 4 MG/2 ML SDV IV PRN (13:40)
[2017-10-11] MEDS ORDERED: KETOROLAC TROMETHAMINE INJ/PF 30 MG/1 ML SDV IV PRN ×2 (13:41→13:55)
--- NOTE | 2017-10-11 13:45 | Operative Report ---
Operative Report DATE OF SURGERY: 10/11/17 PREOPERATIVE DIAGNOSIS: Left distal ureteral stone, left hydronephrosis POSTOPERATIVE DIAGNOSIS: Obstructing left distal ureteral stone, ureteral stricture OPERATION: Cystoscopy, ureteroscopy, dilation of ureteral stricture, laser stone fragmentation, stone extraction, placement of left ureteral stent SURGEON: STEVEN MOREAU II ANESTHESIA: GA TISSUE REMOVED OR ALTERED: Stone fragments ESTIMATED BLOOD LOSS: minimal INTRAOPERATIVE FINDINGS: 1. Distal left ureteral stricture. 2. Obstructing calculus above left ureteral stricture PROCEDURE: The patient was taken to the cystoscopy suite and placed into the supine position on the cystoscopy table. He was then placed under general anesthesia. After adequate general anesthesia, he was placed into the lithotomy position and prepped and draped in the usual sterile fashion. A ureteroscope was placed into the bladder under direct vision in the left ureteral orifice visualized. The ureteroscope was then placed into the distal ureter and advanced to an area which could not be passed with the scope. At this point a 0.035 Glidewire was placed into the ureter and bypass the stone under fluoroscopic guidance. The Glidewire was left in place as a safety wire. The ureteroscope was reinserted beside the Glidewire and again was unable to be manipulated through an area of stricture just outside the bladder. The ureteroscope was then removed and the Glidewire was used to place a balloon dilator, 6 mm, and the stricture dilated. This was done under fluoroscopic guidance and the stone was above the area of dilation. The balloon dilator was removed and replaced again with the ureteroscope. The ureteroscope was then advanced under direct vision through the area of stricture and the stone encountered. Utilizing the holmium laser, the stone was fragmented into multiple small pieces. The fragments were basketed with a nitinol 0 tip 4 wire basket. He is removed and placed into the bladder. At the termination of the procedure, the only fragments remaining were those that could not be grasped with the basket. These were left in place to pass spontaneously. Due to the ureteral dilation, was felt that his stent should be placed postoperatively and a 4.8 Israeli 26 cm double-pigtail stent was placed into the ureter and positioned under fluoroscopic guidance. The cystoscope was then used to irrigate any remaining stone fragments from the bladder and these were sent for pathologic examination and stone analysis. The cystoscope was removed after the bladder was drained and the patient returned to PACU in satisfactory condition. He tolerated the procedure well.
[2017-10-11] MEDS ORDERED: HYDROCODONE/ACETAMINOPHEN 7.5-325 MG TABLET PO PRN (13:56)
[2017-10-11] MEDS ORDERED: HYDROMORPHONE HCL INJ/PF 2 MG/ML AMPULE IV PRN ×2 (14:26)
--- NOTE | 2017-10-11 14:32 | RADIOLOGY REPORT (SQ) ---
EXAM DESCRIPTION: PYELOGRAM RETROGRADE COMPLETED DATE/TIME: 10/11/2017 1:32 pm REASON FOR STUDY: LITHOTRIPSY N13.2 HYDRONEPHROSIS WITH RENAL AND URETERAL CALCULOUS OBSTR COMPARISON: CT abdomen pelvis 10/08/2017 FLUOROSCOPY TIME: 3.1 minutes 3 fluoroscopic images saved to PACS. TECHNIQUE: Intra-operative images acquired during surgical procedure to evaluate progress. NUMBER OF IMAGES: 3 fluoroscopic images LIMITATIONS: None. FINDINGS: Intra procedural imaging during left-sided double-J stent placement in good positioning. It is difficult to discern from these images whether the distal left ureteral stone was removed. IMPRESSION: Intra procedural imaging and fluoro COMMENT: Quality ID [id number]: Final reports for procedures using fluoroscopy that document radiation exp osure indices, or exposure time and number of fluorographic images (if radiation exposure indices are not available) Please consult full operative report of the attending physician for description of the procedure. TECHNICAL DOCUMENTATION: JOB ID: [id number] [employer]- All Rights Reserved Reading location - IP/workstation name: [email or web address]
[2017-10-11 15:52] VITALS: BP 126/77
[2017-10-11] MEDS ORDERED: DEXAMETHASONE SOD PHOSPHATE INJ 4 MG/1 ML VIAL ONE (16:06)
[2017-10-11] MEDS ORDERED: SUCCINYLCHOLINE CHLORIDE INJ 200 MG/10 ML VIAL ONE (16:06)
[2017-10-11] MEDS ORDERED: GLYCOPYRROLATE INJ 0.4 MG/2 ML VIAL ONE (16:06)
[2017-10-11] MEDS ORDERED: LIDOCAINE 2% INJ-PF (20 MG/ML) 2 ML AMPUL ONE (16:06)
[2017-10-11] MEDS ORDERED: ONDANSETRON HCL INJ/PF 4 MG/2 ML SDV ONE (16:06)
[2017-10-11] MEDS ORDERED: NEOSTIGMINE METHYLSULFATE 10 MG/10 ML VIAL ONE (16:06)
[2017-10-11] MEDS ORDERED: ROCURONIUM BROMIDE INJ 50 MG/5 ML VIAL IV ONE (16:06)
== END 2017-10-11 15:20 | disposition home or self-care (01) ==
LOC: OROUT 09:31
PROVIDERS: ATTEND Urology
PROC: 0T778DZ Dilation of Left Ureter with Intraluminal Device, Via Natural or Artificial Opening Endoscopic (ICD-10-PCS; 2017-10-11)
PROC: 0TF78ZZ Fragmentation in Left Ureter, Via Natural or Artificial Opening Endoscopic (ICD-10-PCS; principal; 2017-10-11 12:00)
DX: N13.2 Hydronephrosis with renal and ureteral calculous obstruction (principal); Z88.0 Allergy status to penicillin
CPT/HCPCS: 82370; 74420; 52356; C1726; C1758; Q9967; J2250; J3490 ×2; J1100; J3010; J1580; J2175; J0330; J2405; J2704; J0131; 918

== ENCOUNTER 2019-01-31 15:03 | Emergency (ER) | payer SELFPAY ==
--- NOTE | 2019-01-31 15:43 | ER Document Report ---
ED Medical Screen (RME) - General Chief Complaint: Shortness Of Breath Stated Complaint: NUMBNESS Time Seen by Provider: 01/31/19 15:24 Mode of Arrival: Ambulatory Information source: Patient Notes: Patient presents emergency department with complaints of shortness of breath left arm numbness. 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 He reports he vomited passed out. He is not sure how long he was out. When he woke up his left arm was numb. When patient arrived to the hospital he was tachypneic. Respiratory rate is even now unlabored O2 sats 100%. Denies past medical history of cardiac disease. Denies history of stroke. Denies family history. No other complaints. patient facial expressions symmetric some weakness noted in left arm. TRAVEL OUTSIDE OF THE [place] IN LAST 30 DAYS: No - Related Data Allergies/Adverse Reactions: Penicillins Allergy (Verified 01/31/19 15:16) Past Medical History - Past Medical History Cardiac Medical History: Denies: Hx Atrial Fibrillation, Hx Congestive Heart Failure, Hx Coronary Artery Disease, Hx DVT, Hx Heart Attack, Hx Hypercholesterolemia, Hx Hypertension, Hx Peripheral Vascular Disease, Hx Pulmonary Embolism, Hx Heart Murmur Pulmonary Medical History: Denies: Hx Asthma, Hx Bronchitis, Hx COPD, Hx Pneumonia, Hx Intubation, Hx Respiratory Failure, Hx Sleep Apnea, Hx Tuberculosis Neurological Medical History: Denies: Hx Cerebrovascular Accident, Hx Migraine, Hx Seizures Endocrine Medical History: Reports: Hx Diabetes Mellitus Type 2 Renal/ Medical History: Reports: Hx Kidney Stones. Denies: Hx Peritoneal Dialysis Musculoskeltal Medical History: Denies Hx Arthritis - Immunizations Hx Diphtheria, Pertussis, Tetanus Vaccination: Yes History of Influenza Vaccine for 05/2017 - 10/2017 Season: No Physical Exam - Vital signs Vitals: Temp Pulse Resp BP Pulse Ox 97.5 F 78 25 H 131/71 H 99 01/31/19 15:18 01/31/19 15:18 01/31/19 15:18 01/31/19 15:18 01/31/19 15:18 Course - Vital Signs Vital signs: Temp Pulse Resp BP Pulse Ox 97.5 F 78 25 H 131/71 H 99 01/31/19 15:18 01/31/19 15:18 01/31/19 15:18 01/31/19 15:18 01/31/19 15:18
--- NOTE | 2019-01-31 16:00 | RADIOLOGY REPORT (SQ) ---
EXAM DESCRIPTION: CT HEAD WITHOUT COMPLETED DATE/TIME: 01/31/2019 3:50 pm REASON FOR STUDY: Change in LOC, L arm numbness COMPARISON: 10/10/2017 TECHNIQUE: Axial images acquired through the brain without intravenous contrast. Images reviewed wi th bone, brain and subdural windows. Additional sagittal and coronal reconstructions were generated. Images stored on PACS. All CT scanners at this facility use dose modulation, iterative reconstruction, and/or weight based d osing when appropriate to reduce radiation dose to as low as reasonably achievable (ALARA). [facility]: Dose Right [facility]: CareDose [facility]: Dose Right [facility]: Teradose 4D [facility]: [employer] RADIATION DOSE: CT Rad equipment meets quality standard of care and radiation dose reduction techniq ues were employed. CTDIvol: 53.2 mGy. DLP: 1070 mGy-cm. mGy. LIMITATIONS: None. FINDINGS: VENTRICLES: Normal size and contour. CEREBRUM: No masses. No hemorrhage. No midline shift. No evidence for acute infarction. Normal gra y/white matter differentiation. No areas of low density in the white matter. CEREBELLUM: No masses. No hemorrhage. No alteration of density. No evidence for acute infarction. EXTRAAXIAL SPACES: No fluid collections. No masses. ORBITS AND GLOBE: No intra- or extraconal masses. Normal contour of globe without masses. CALVARIUM: No fracture. PARANASAL SINUSES: No fluid or mucosal thickening. SOFT TISSUES: No mass or hematoma. OTHER: No other significant finding. IMPRESSION: No acute intracranial pathology. EVIDENCE OF ACUTE STROKE: NO. COMMENT: Quality ID # [id number]: Final reports with documentation of one or more dose reduction techniques (e.g., Automated exposure control, adjustment of the mA and/or kV according to patient size, use of iterative reconstruction technique) TECHNICAL DOCUMENTATION: JOB ID: [id number] [employer]- All Rights Reserved Reading location - IP/workstation name: [email or web address]
[2019-01-31 16:25] LABS: ABSOLUTE EOSINOPHILS # (AUTO) 0.1 10^3/uL (0.0-0.6); ABSOLUTE MONOCYTES (AUTO) 0.7 10^3/uL (0.1-1.4); ABSOLUTE NEUT (AUTO) 4.2 10^3/uL (1.7-8.2); BASOPHILS % (AUTO) 0.5 % (0-2); EOSINOPHILS % (AUTO) 1.8 % (0-6); HEMATOCRIT 45.8 % (37.9-51.0); HEMOGLOBIN 15.1 g/dL (13.5-17.0); LYMPHOCYTES % (AUTO) 28.1 % (13-45); MEAN CORPUSCULAR HEMOGLOBIN 28.2 pg (27.0-33.4); MEAN CORPUSCULAR HGB CONC 33.1 g/dL (32.0-36.0); MEAN CORPUSCULAR VOLUME 85 fl (80-97); MONOCYTES % (AUTO) 9.5 % (3-13); PLATELET COUNT 246 10^3/uL (150-450); RED BLOOD COUNT 5.36 10^6/uL (4.35-5.55); RED CELL DISTRIBUTION WIDTH 13.3 % (11.5-14.0); SEGMENTED NEUTROPHILS % (AUTO) 60.1 % (42-78); TOTAL CELLS COUNTED % (AUTO) 100 %; WHITE BLOOD COUNT 7.1 10^3/uL (4.0-10.5)
[2019-01-31 16:40] LABS: APPEARANCE,URINE SLIGHTLY-CLOUDY; BILIRUBIN,URINE NEGATIVE (NEGATIVE); GLUCOSE, URINE NEGATIVE (NEGATIVE); KETONES,URINE TRACE mg/dL (NEGATIVE); LEUKOCYTE ESTERASE,URINE LARGE (NEGATIVE); NITRITE,URINE NEGATIVE (NEGATIVE); PROTEIN,URINE 100 mg/dL (NEGATIVE); URINE SPECIFIC GRAVITY 1.031; UROBILINOGEN,URINE NEGATIVE mg/dL (<2.0)
[2019-01-31 16:43] LABS: COLOR,URINE YELLOW
[2019-01-31 16:46] LABS: ALANINE AMINOTRANSFERASE 46 U/L (21-72); ALBUMIN 5.3 g/dL (3.5-5.0); ALKALINE PHOSPHATASE 67 U/L (38-126); ANION GAP 11 (5-19); ASPARTATE AMINO TRANSFERASE 41 U/L (17-59); BILIRUBIN,DIRECT 0.3 mg/dL (0.0-0.4); BILIRUBIN,TOTAL 0.6 mg/dL (0.2-1.3); BLOOD UREA NITROGEN 18 mg/dL (7-20); CALCIUM 10.9 mg/dL (8.4-10.2); CARBON DIOXIDE 29 mmol/L (22-30); CHLORIDE 102 mmol/L (98-107); CREATINE KINASE 525 U/L (55-170); GLUCOSE 96 mg/dL (75-110); POTASSIUM 4.5 mmol/L (3.6-5.0); SODIUM 141.5 mmol/L (137-145); TOTAL PROTEIN 8.9 g/dL (6.3-8.2)
--- NOTE | 2019-01-31 16:47 | RADIOLOGY REPORT (SQ) ---
EXAM DESCRIPTION: CHEST 2 VIEWS COMPLETED DATE/TIME: 01/31/2019 4:29 pm REASON FOR STUDY: SOB COMPARISON: None. EXAM PARAMETERS: NUMBER OF VIEWS: two views TECHNIQUE: Digital Frontal and Lateral radiographic views of the chest acquired. RADIATION DOSE: NA LIMITATIONS: none FINDINGS: LUNGS AND PLEURA: No opacities, masses or pneumothorax. No pleural effusion. MEDIASTINUM AND HILAR STRUCTURES: No masses or contour abnormalities. HEART AND VASCULAR STRUCTURES: Heart normal size. No evidence for failure. BONES: No acute findings. HARDWARE: None in the chest. OTHER: No other significant finding. IMPRESSION: NO ACUTE RADIOGRAPHIC FINDING IN THE CHEST. TECHNICAL DOCUMENTATION: JOB ID: [id number] [employer]- All Rights Reserved Reading location - IP/workstation name: [email or web address]
[2019-01-31] MEDS ORDERED: ACETAMINOPHEN 325 MG TABLET PO ONE (19:07)
[2019-01-31] MEDS ORDERED: NORMAL SALINE 1000 ML 1,000 ML IV PRN (19:14)
--- NOTE | 2019-01-31 19:36 | EKG REPORT ---
SEVERITY:- ABNORMAL ECG - SINUS RHYTHM BORDERLINE LEFT AXIS DEVIATION ABNORMAL T, CONSIDER ISCHEMIA, INFERIOR LEADS MINIMAL ST ELEVATION, ANTERIOR LEADS : Confirmed by: Annmarie Chapman MD 31-Jan-2019 19:35:45
--- NOTE | 2019-01-31 20:04 | ER Document Report ---
ED General - General Chief Complaint: Shortness Of Breath Stated Complaint: NUMBNESS Time Seen by Provider: 01/31/19 15:24 Mode of Arrival: Ambulatory Notes: Patient is a 33-year-old male without chronic medical problems who presents after an episode of syncope while at work. Patient says that he was working out in the heat, began to feel lightheaded, nauseous, vomited on 2 occasions. Went inside, sat down and apparently fell falling onto his right side. When he woke up states that he continue to feel nauseated and vomited once more. Also noted some paresthesias from the elbow down to his fingertips on the left. He states that he did feel somewhat short of breath after waking up but that this has likewise resolved. Denies any associated chest pain. States that he has had multiple similar episodes of syncope on an almost yearly basis under varying circumstances and has had a cardiac evaluation in the past that was reassuring. At the time of my evaluation he denies any symptoms stating he feels much better after receiving IV fluids. States that his symptoms came on gradually, were severe when present. Nothing seemed to worsen his symptoms when present. Denies any symptoms at the time of my evaluation. TRAVEL OUTSIDE OF THE [place] IN LAST 30 DAYS: No - Related Data Allergies/Adverse Reactions: Penicillins Allergy (Verified 01/31/19 15:16) Past Medical History - General Information source: Patient - Social History Smoking Status: Current Every Day Smoker Chew tobacco use (# tins/day): No Frequency of alcohol use: None Drug Abuse: None Lives with: Family Family History: Reviewed & Not Pertinent Patient has suicidal ideation: No Patient has homicidal ideation: No - Past Medical History Cardiac Medical History: Denies: Hx Atrial Fibrillation, Hx Congestive Heart Failure, Hx Coronary Artery Disease, Hx DVT, Hx Heart Attack, Hx Hypercholesterolemia, Hx Hypertension, Hx Peripheral Vascular Disease, Hx Pulmonary Embolism, Hx Heart Murmur Pulmonary Medical History: Denies: Hx Asthma, Hx Bronchitis, Hx COPD, Hx Pneumonia, Hx Intubation, Hx Respiratory Failure, Hx Sleep Apnea, Hx Tuberculosis Neurological Medical History: Denies: Hx Cerebrovascular Accident, Hx Migraine, Hx Seizures Endocrine Medical History: Reports: Hx Diabetes Mellitus Type 2 Renal/ Medical History: Reports: Hx Kidney Stones. Denies: Hx Peritoneal Dialysis Musculoskeletal Medical History: Denies Hx Arthritis - Immunizations Hx Diphtheria, Pertussis, Tetanus Vaccination: Yes Review of Systems - Review of Systems Notes: Constitutional: Negative for fever. HENT: Negative for sore throat. Eyes: Negative for visual changes. Cardiovascular: Negative for chest pain. Respiratory: Negative for shortness of breath. Gastrointestinal: Negative for abdominal pain, positive for nausea and vomiting Genitourinary: Negative for dysuria. Musculoskeletal: Negative for back pain. Skin: Negative for rash. Neurological: Negative for headaches, positive for paresthesias of the left upper extremity now resolved 10 point ROS negative except as marked above and in HPI. Physical Exam - Vital signs Vitals: Temp Pulse Resp BP Pulse Ox 97.5 F 78 25 H 131/71 H 99 01/31/19 15:18 01/31/19 15:18 01/31/19 15:18 01/31/19 15:18 01/31/19 15:18 Interpretation: Tachypneic - Resolved at the time of my assessment Notes: PHYSICAL EXAMINATION: GENERAL: Well-appearing, well-nourished and in no acute distress. HEAD: Atraumatic, normocephalic. EYES: Pupils equal round and reactive to light, extraocular movements intact, sclera anicteric, conjunctiva are normal. ENT: nares patent, oropharynx clear without exudates. Moist mucous membranes. NECK: Normal range of motion, supple without lymphadenopathy LUNGS: Breath sounds clear to auscultation bilaterally and equal. No wheezes rales or rhonchi. HEART: Regular rate and rhythm without murmurs ABDOMEN: Soft, nontender, normoactive bowel sounds. No guarding, no rebound. No masses appreciated. EXTREMITIES: Normal range of motion, no pitting or edema. No cyanosis. NEUROLOGICAL: Face symmetric. Tongue protrudes midline. Extraocular motions intact. Pupils are 2 mm and equally reactive. Normal speech, normal gait. 5 out of 5 strength in both the distal and proximal upper and lower extremities bilaterally. Sensation is grossly intact throughout. Finger to nose testing normal. Pronator drift normal. PSYCH: Normal mood, normal affect. SKIN: Warm, Dry, normal turgor, no rashes or lesions noted. Course - Re-evaluation Re-evalutation: 01/31/19 20:01 Presentation of syncope likely secondary to dehydration in the context of working outside for prolonged hours today. Patient normotensive, alert, without focal neurologic deficits at time of arrival. Denies syncope was during exertion. No preceding symptoms of palpitations, chest pain, or shortness of breath. Patient asymptomatic at time of arrival. EKG is without evidence of HCOM, right heart strain, ST changes to suggest ischemia, prolong QTc, delta wave, epsilon wave, or Brugada syndrome. Patient denies any family history of sudden cardiac , personal history of of structural heart disease. Has had recurrent episodes of syncope in the past and has a ready had a normal echocardiogram in the past. Patient denies any symptoms to suggest an acute PE, [place], TAD, SAH, seizure, or acute GI bleed as the etiology of their syncope today. On exam, no murmurs to suggest critical aortic stenosis as possible etiology. Patient did have some paresthesias of the left upper extremity which did resolve at the time of my assessment. CT of the head was obtained in triage apparently secondary to this concern and is noted to be normal after review. Based on waldemar yusuf clinical history, exam findings, vitals, and patients appearance, I feel it is safe for patient to be discharged home at this time with close outpatient follow-up and strict return precautions. Patient is in agreement with this plan, has verbalized indications for return to ED, and questions have been answered. - Vital Signs Vital signs: Temp Pulse Resp BP Pulse Ox 97.7 F 78 19 133/88 H 99 01/31/19 17:57 01/31/19 15:18 01/31/19 19:05 01/31/19 19:05 01/31/19 19:05 - Laboratory Result Diagrams: 01/31/19 16:11 01/31/19 16:11 Laboratory results interpreted by me: 01/31/19 01/31/19 16:11 16:11 Calcium 10.9 H Creatine Kinase 525 H Total Protein 8.9 H Albumin 5.3 H Urine Protein 100 H Urine Ketones TRACE H Ur Leukocyte Esterase LARGE H - Diagnostic Test Radiology reviewed: Image reviewed, Reports reviewed Radiology results interpreted by me: 01/31/19 20:02 Chest x-ray: No acute infiltrate or pneumothorax CT head: No acute intracranial bleed or mass - EKG Interpretation by Me Additional EKG results interpreted by me: 01/31/19 20:02 Sinus rhythm, rate 69, no ST elevations or depressions. QTC 407. Discharge - Discharge Clinical Impression: Arm paresthesia, left Syncope Qualifiers: Syncope type: unspecified Qualified Code(s): R55 - Syncope and collapse Nausea and vomiting Qualifiers: Vomiting type: unspecified Vomiting Intractability: non-intractable Qualified Code(s): R11.2 - Nausea with vomiting, unspecified Condition: Good Disposition: HOME, SELF-CARE Additional Instructions: You were seen today after an episode of passing out. Your EKG here is normal. At this time, we do not feel that your episode of passing out was from any life- threatening cause. Please drink plenty of fluids over the next several days. Return to emergency department if you have any further episodes of syncope, headache, weakness, numbness, chest pain, or shortness of breath. Please follow up closely with your primary care physician. Forms: Return to Work, Special Work Note
[2019-01-31 20:15] VITALS: BP 131/79
== END 2019-01-31 20:18 | disposition home or self-care (01) ==
LOC: ER 15:03
DX: R20.0 Anesthesia of skin (principal); R55 Syncope and collapse; R11.2 Nausea with vomiting, unspecified; R06.02 Shortness of breath; E11.9 Type 2 diabetes mellitus without complications; Z87.442 Personal history of urinary calculi; Z88.0 Allergy status to penicillin
CPT/HCPCS: 93005; 99285; 36415; 82550; 85025; 80053; 81001; 84484; 71046; 70450; 93010; J7030; 96360